=== PATIENT | female | born 1995 | race Two or more races ===

== ENCOUNTER 2020-03-03 15:26 | Inpatient (IN) | payer OTHER ==
[~2020-03-03] VITALS: Ht 165.1 cm; Wt 114.0 kg
[~2020-03-03 15:26] MED LIST: AVIANE1 EACH PO; BUSPIRONE HCL5 MG PO; CALCIUM500 MG PO; EYE HEALTH ADU1 EACH PO; FISH OIL 1,0001 EAC2 NG; MULTIVITAMINS1 EAC7 PO; PROBIOTIC1 EAC1 PO
[2020-03-04] MEDS ORDERED: PRENATAL VITAM1 EAC6 PO (03:42)
--- NOTE | 2020-03-04 12:39 | PR ---
[facility] [address] [facility] [place], [place] [address] Signed Progress Notes IP Datetime Report Generated by CPN: 03/04/2020 12:39 PROGRESS NOTES: [id number] Impression: Normal progression of labor Procedures: Artificial ROM; Sterile Vag Exam Plan: Continue present management Informed Consent Obtain: Vaginal Delivery; Induction of Labor; Risks, Benefits and Alternatives Discussed VITAL SIGNS: [id number] Vital Signs: Reviewed VS Notable Details: mild HTN EXAM: [id number] Dilatation: 1.5 Effacement: 70 Station: -2 Uterine Contractions: was q 2 to 4 min MEMBRANES: [id number] Membrane Status: Intact ROM Note: AROM with small amount of clear fluid Comments: Progressing and now ruptured. Will continue. Fetus A: [id number] FHR Baseline: 140 Variability: Moderate 6-25bpm Accelerations: 15X15 Decelerations: None FHR Category: Category I Presentation: Vertex Comments on Fetus A: No evidence of metabolic acidosis Fetus B: [id number] Signing Physician: Amaya Lewis MD Copies: ~ *Electronically Signed* 03/04/20 1239 AMAYA LEWIS MD PATIENT NAME: MOY BRODERICK PROGRESS NOTE DATE OF : [birth year] PHYSICIAN: AMAYA LEWIS MD RPT #: [id number] REPORT IS CONFIDENTIAL AND NOT TO BE RELEASED WITHOUT AUTHORIZATION
--- NOTE | 2020-03-04 17:40 | PR ---
[facility] [address] [facility] [place], [place] [address] Signed Progress Notes IP Datetime Report Generated by OTTO: 03/04/2020 17:40 PROGRESS NOTES: [id number] Impression: Slow Progression of Labor Procedures: Intrauterine Pressure Catheter; Scalp Electrode Plan: Continue present management Informed Consent Obtain: Vaginal Delivery; Induction of Labor; Risks, Benefits and Alternatives Discussed VITAL SIGNS: [id number] Vital Signs: Reviewed VS Notable Details: mild HTN EXAM: [id number] Dilatation: 3.0 Effacement: 90 Station: -2 Uterine Contractions: q 1 to 3 min MEMBRANES: [id number] Membrane Status: Intact ROM Note: AROM with small amount of clear fluid Comments: Progressing slowly. Some variables now so will continue to closely observe and change position as needed. Fetus A: [id number] FHR Baseline: 130 Variability: Moderate 6-25bpm Accelerations: 15X15 Decelerations: Variable FHR Category: Category II Presentation: Vertex Comments on Fetus A: good variability but will need close observation Fetus B: [id number] Signing Physician: Amaya Lewis MD Copies: ~ *Electronically Signed* 03/04/20 4700 AMAYA LEWIS MD PATIENT NAME: MOY BRODERICK PROGRESS NOTE DATE OF : [birth year] PHYSICIAN: AMAYA LEWIS MD RPT #: [id number] REPORT IS CONFIDENTIAL AND NOT TO BE RELEASED WITHOUT AUTHORIZATION
--- NOTE | 2020-03-04 19:26 | PR ---
[facility] [address] [place], [place] [address] Signed Progress Notes IP Datetime Report Generated by OTTO: 03/04/2020 19:26 PROGRESS NOTES: [id number] Impression: Arrest of dilatation/descent; Reassuring heart rate Procedures: Intrauterine Pressure Catheter; Scalp Electrode Plan: Continue present management Informed Consent Obtain: Vaginal Delivery; Induction of Labor; Risks, Benefits and Alternatives Discussed VITAL SIGNS: [id number] Vital Signs: Reviewed VS Notable Details: mild HTN EXAM: [id number] Dilatation: 3.0 Effacement: 90 Station: -2 Uterine Contractions: q 3 to 5 min, poor quality MEMBRANES: [id number] Membrane Status: Intact ROM Note: AROM with small amount of clear fluid Comments: Poor progress but contractions are poor quality at this time. Baby recovered well after using terb and is overall reassuring but will need continued close observation. Unfortunately, her contractions are poor quality. Will start pitocin to make contractions stronger and hopefully the baby will tolerate the increased contractions. Fetus A: [id number] FHR Baseline: 140 Variability: Moderate 6-25bpm Accelerations: 15X15 Decelerations: Variable FHR Category: Category II Presentation: Vertex Comments on Fetus A: No evidence of metabolic acidosis with good variability Fetus B: [id number] Signing Physician: Amaya Lewis MD Copies: *Electronically Signed* 03/04/20 1926 AMAYA LEWIS MD PATIENT NAME: MOY BRODERICK PROGRESS NOTE DATE OF : [birth year] PHYSICIAN: AMAYA LEWIS MD RPT #: [id number] REPORT IS CONFIDENTIAL AND NOT TO BE RELEASED WITHOUT AUTHORIZATION [address] [address] Signed ~ *Electronically Signed* 03/04/201925 AMAYA LEWIS MD PATIENT NAME: MOY BRODERICK PROGRESS NOTE DATE OF : [birth year] PHYSICIAN: AMAYA LEWIS MD RPT #: [id number] REPORT IS CONFIDENTIAL AND NOT TO BE RELEASED WITHOUT AUTHORIZATION
--- NOTE | 2020-03-06 07:05 | PR ---
[facility] [address] [facility] [place], [place] [address] Signed PP Progress Notes Datetime Report Generated by CPHina: 03/06/2020 07:05 SUBJECTIVE: [id number] Pain: Within normal limits Nausea/Vomiting: Denies Vital Signs: E7211399 Vital Signs: Reviewed; Within Normal Limits EXAM: [id number] Cardiovascular: Not Done Respiratory: Not Done Abdomen/Uterus: Abnormal Vulva/Perineum: Not Done Breasts: Not Done CVA Tenderness: Not Done Extremities: Normal Incision: Not Applicable Progress: Normal Exam Comments: Fundus firm, NT @ U-1. H/H 8.1/24.2, WBC 12.7, plat 152k IMPRESSION/PLAN/PROCEDURES: [id number] Impression: Normal progression Plan: Discharge Procedures: None Progress Notes: Doing well. She is ready for D/C. Signing Physician: Amaya Lewis MD Copies: ~ *Electronically Signed* 03/06/20704 AMAYA LEWIS MD PATIENT NAME: MOY BRODERICK PROGRESS NOTE DATE OF : [birth year] PHYSICIAN: AMAYA LEWIS MD RPT #: [id number] REPORT IS CONFIDENTIAL AND NOT TO BE RELEASED WITHOUT AUTHORIZATION
== END 2020-03-06 09:20 | disposition home or self-care (01) | DRG 768 ==
LOC: FBC 03-04 00:06
PROVIDERS: ADMIT Obstetrics & Gynecology
PROC: 10907ZC Drainage of Amniotic Fluid, Therapeutic from Products of Conception, Via Natural or Artificial Opening (ICD-10-PCS; 2020-03-04)
PROC: 10H07YZ Insertion of Other Device into Products of Conception, Via Natural or Artificial Opening (ICD-10-PCS; 2020-03-04)
PROC: 3E0P7VZ Introduction of Hormone into Female Reproductive, Via Natural or Artificial Opening (ICD-10-PCS; 2020-03-04)
PROC: 00HU33Z Insertion of Infusion Device into Spinal Canal, Percutaneous Approach (ICD-10-PCS; 2020-03-04)
PROC: 3E0R3BZ Introduction of Anesthetic Agent into Spinal Canal, Percutaneous Approach (ICD-10-PCS; 2020-03-04)
PROC: 10E0XZZ Delivery of Products of Conception, External Approach (ICD-10-PCS; principal; 2020-03-05)
PROC: 0UQG0ZZ Repair Vagina, Open Approach (ICD-10-PCS; 2020-03-05)
DX: O14.04 Mild to moderate pre-eclampsia, complicating childbirth (principal); Z37.0 Single live birth; Z3A.39 39 weeks gestation of pregnancy; O99.214 Obesity complicating childbirth; E66.9 Obesity, unspecified; O76 Abnormality in fetal heart rate and rhythm complicating labor and delivery; O71.4 Obstetric high vaginal laceration alone; O69.81X0 Labor and delivery complicated by cord around neck, without compression, not applicable or unspecified; O69.82X0 Labor and delivery complicated by other cord entanglement, without compression, not applicable or unspecified; O26.03 Excessive weight gain in pregnancy, third trimester
CPT/HCPCS: 01960; 36415; 82565; 82570; 82803; 84156; 84450; 84520; 84550; 85025; 85027; A9270; J2590; J2795; J3010; J3105; J7121

== ENCOUNTER 2022-08-24 00:07 | Inpatient (IN) | payer OTHER ==
[~2022-08-24] VITALS: Ht 165.1 cm; Wt 120.2 kg
[~2022-08-24 00:07] MED LIST changes: +PRENATAL VITAM1 EAC6 PO
--- NOTE | 2022-08-24 09:42 | PR ---
[facility] [address] [facility] [place], [place] [address] Signed Progress Notes IP Datetime Report Generated by CPN: 08/24/2022 09:42 PROGRESS NOTES: [id number] Impression: Normal Progression of Labor Procedures: Artificial ROM; Sterile Vag Exam Plan: Continue Present Management VITAL SIGNS: [id number] Vital Signs: Reviewed; Within Normal Limits EXAM: H5964965 Dilatation: 2.0 Effacement: 50 Station: -2 Contractions: q 2 min MEMBRANES: [id number] Comments: Doing well. Will continue. FETUS A: [id number] FHR Baseline: 130 Variability: Moderate 6-25bpm Accelerations: 15X15 Decelerations: None FHR Category: Category I Presentation: Vertex Comments on Fetus A: no evidence of metabolic acidosis FETUS B: [id number] Signing Physician: Amaya Lewis MD Copies: ~ *Electronically Signed* 08/24/22941 AMAYA LEWIS MD PATIENT NAME: MOY BRODERICK PROGRESS NOTE DATE OF : [birth year] PHYSICIAN: AMAYA LEWIS MD RPT #: [id number] REPORT IS CONFIDENTIAL AND NOT TO BE RELEASED WITHOUT AUTHORIZATION
--- NOTE | 2022-08-24 13:36 | PR ---
[facility] [address] [facility] [place] [address] Signed Progress Notes IP Datetime Report Generated by CPN: 08/24/2022 13:36 PROGRESS NOTES: [id number] Impression: Reassuring Heart Rate Procedures: Sterile Vag Exam Plan: Augmentation VITAL SIGNS: [id number] Vital Signs: Reviewed; Within Normal Limits EXAM: A5021117 Dilatation: 4.0 Effacement: 70 Station: -2 Contractions: q 2 min MEMBRANES: [id number] Comments: No progress over last 2 hrs. Labor pattern appears dysfunctional. Will begin low dose pitocin. Discussed with patient. FETUS A: [id number] FHR Baseline: 130 Variability: Moderate 6-25bpm Accelerations: 15X15 Decelerations: None FHR Category: Category I Presentation: Vertex Comments on Fetus A: no evidence of metabolic acidosis FETUS B: [id number] Signing Physician: Amaya Lewis MD Copies: ~ *Electronically Signed* 08/24/22 1336 AMAYA LEWIS MD PATIENT NAME: MOY BRODERICK PROGRESS NOTE DATE OF : [birth year] PHYSICIAN: AMAYA LEWIS MD RPT #: [id number] REPORT IS CONFIDENTIAL AND NOT TO BE RELEASED WITHOUT AUTHORIZATION
--- NOTE | 2022-08-24 15:40 | PR ---
[facility] [address] [facility] [place], [place] [address] Signed Progress Notes IP Datetime Report Generated by CPN: 08/24/2022 15:39 PROGRESS NOTES: [id number] Impression: Reassuring Heart Rate Procedures: Intrauterine Pressure Catheter; Sterile Vag Exam Plan: Continue Present Management VITAL SIGNS: [id number] Vital Signs: Reviewed; Within Normal Limits EXAM: [id number] Dilatation: 4.0 Effacement: 70 Station: -2 Contractions: q 2 min MEMBRANES: [id number] Comments: No real progress. Suspect contractions still not adequate. Will place IUPC and increase pit as needed. FETUS A: Z8903220 FHR Baseline: 130 Variability: Moderate 6-25bpm Accelerations: 15X15 Decelerations: None FHR Category: Category I Presentation: Vertex Comments on Fetus A: no evidence of metabolic acidosis FETUS B: [id number] Signing Physician: Amaya Lewis MD Copies: ~ *Electronically Signed* 08/24/22 1539 AMAYA LEWIS MD PATIENT NAME: MOY BRODERICK PROGRESS NOTE DATE OF : [birth year] PHYSICIAN: AMAYA LEWIS MD RPT #: [id number] REPORT IS CONFIDENTIAL AND NOT TO BE RELEASED WITHOUT AUTHORIZATION
--- NOTE | 2022-08-24 18:39 | PR ---
[facility] [address] [facility] [place], [place] [address] Signed Progress Notes IP Datetime Report Generated by CPN: 08/24/2022 18:39 PROGRESS NOTES: [id number] Impression: Reassuring Heart Rate Procedures: Sterile Vag Exam Plan: Continue Present Management Other Plans: increase pitocin, change position VITAL SIGNS: H5095525 Vital Signs: Reviewed; Within Normal Limits EXAM: [id number] Dilatation: 5.0 Effacement: 80 Station: -2 Contractions: q 2 min MEMBRANES: [id number] Comments: Minimal change in cervix. Will increase pit and try further position changes. FETUS A: [id number] FHR Baseline: 130 Variability: Moderate 6-25bpm Accelerations: 15X15 Decelerations: None FHR Category: Category I Presentation: Vertex Comments on Fetus A: no evidence of metabolic acidosis FETUS B: [id number] Signing Physician: Amaya Lewis MD Copies: ~ *Electronically Signed* 08/24/22 1839 AMAYA LEWIS MD PATIENT NAME: MOY BRODERICK PROGRESS NOTE DATE OF : [birth year] PHYSICIAN: AMAYA LEWIS MD RPT #: [id number] REPORT IS CONFIDENTIAL AND NOT TO BE RELEASED WITHOUT AUTHORIZATION
--- NOTE | 2022-08-24 20:48 | PR ---
[facility] [address] [facility] [place], [place] [address] Signed Progress Notes IP Datetime Report Generated by CPN: 08/24/2022 20:48 PROGRESS NOTES: [id number] Impression: Reassuring Heart Rate Procedures: Sterile Vag Exam Plan: Continue Present Management Other Plans: increase pitocin, change position VITAL SIGNS: O0049014 Vital Signs: Reviewed; Within Normal Limits EXAM: G1818887 Dilatation: 5.0 Effacement: 80 Station: -2 Contractions: q 2 min MEMBRANES: [id number] Comments: Comfortable after epidural. Cervix feels more central. Will continue. FETUS A: [id number] FHR Baseline: 130 Variability: Moderate 6-25bpm Accelerations: 15X15 Decelerations: None FHR Category: Category I Presentation: Vertex Comments on Fetus A: no evidence of metabolic acidosis FETUS B: [id number] Signing Physician: Amaya Lewis MD Copies: ~ *Electronically Signed* 08/24/222047 AMAYA LEWIS MD PATIENT NAME: MOY BRODERICK PROGRESS NOTE DATE OF : [birth year] PHYSICIAN: AMAYA LEWIS MD RPT #: [id number] REPORT IS CONFIDENTIAL AND NOT TO BE RELEASED WITHOUT AUTHORIZATION
--- NOTE | 2022-08-25 08:37 | PR ---
[facility] [address] [facility] [place], [place] [address] Signed PP Progress Notes Datetime Report Generated by CPN: 08/25/2022 08:37 SUBJECTIVE: [id number] Pain: Within Normal Limits Vital Signs: [id number] Vital Signs: Reviewed; Within Normal Limits Cardiovascular: Not Done Respiratory: Not Done Abdomen/Uterus: Abnormal Lochia: Normal Vulva/Perineum: Not Done Breasts: Not Done CVA Tenderness: Not Done Extremities: Normal Incision: Not Applicable Progress: Normal Exam Comments: Fundus firm, NT @ U-1. H/H 10.4/31.7, WBC 15.8, plat 265k IMPRESSION/PLAN/PROCEDURES: [id number] Impression: Normal Progression Plan: Continue Present Management Procedures: None Progress Notes: Doing well. Will continue present care with probable D/C in am. Signing Physician: Amaya Lweis MD Copies: ~ *Electronically Signed* 08/25/22 0837 AMAYA LEWIS MD PATIENT NAME: MOY BRODERICK PROGRESS NOTE DATE OF : [birth year] PHYSICIAN: AMAYA LEWIS MD RPT #: [id number] REPORT IS CONFIDENTIAL AND NOT TO BE RELEASED WITHOUT AUTHORIZATION
--- NOTE | 2022-08-26 09:52 | PR ---
[facility] [address] [facility] [place], [place] [address] Signed PP Progress Notes Datetime Report Generated by CPN: 08/26/2022 09:52 SUBJECTIVE: [id number] Pain: Within Normal Limits Vital Signs: I5187707 Vital Signs: Reviewed; Within Normal Limits Cardiovascular: Not Done Respiratory: Not Done Abdomen/Uterus: Abnormal Lochia: Normal Vulva/Perineum: Not Done Breasts: Not Done CVA Tenderness: Not Done Extremities: Normal Incision: Not Applicable Progress: Abnormal Exam Comments: Fundus firm, NT @ U-1. IMPRESSION/PLAN/PROCEDURES: [id number] Impression: Normal Progression Plan: Discharge Procedures: None Progress Notes: Doing well. She is ready for D/C. Signing Physician: Amaya Lewis MD Copies: ~ *Electronically Signed* 08/26/22 0952 AMAYA LEWIS MD PATIENT NAME: MOY BRODERICK PROGRESS NOTE DATE OF : [birth year] PHYSICIAN: AMAYA LEWIS MD RPT #: [id number] REPORT IS CONFIDENTIAL AND NOT TO BE RELEASED WITHOUT AUTHORIZATION
== END 2022-08-26 11:13 | disposition home or self-care (01) | DRG 807 ==
LOC: FBC 00:07
PROVIDERS: ADMIT Obstetrics & Gynecology; ATTEND Obstetrics & Gynecology
PROC: 10E0XZZ Delivery of Products of Conception, External Approach (ICD-10-PCS; principal; 2022-08-24)
PROC: 3E0P7VZ Introduction of Hormone into Female Reproductive, Via Natural or Artificial Opening (ICD-10-PCS; 2022-08-24)
PROC: 10907ZC Drainage of Amniotic Fluid, Therapeutic from Products of Conception, Via Natural or Artificial Opening (ICD-10-PCS; 2022-08-24)
PROC: 00HU33Z Insertion of Infusion Device into Spinal Canal, Percutaneous Approach (ICD-10-PCS; 2022-08-24)
PROC: 3E0R3BZ Introduction of Anesthetic Agent into Spinal Canal, Percutaneous Approach (ICD-10-PCS; 2022-08-24)
PROC: 10H07YZ Insertion of Other Device into Products of Conception, Via Natural or Artificial Opening (ICD-10-PCS; 2022-08-24)
DX: O99.214 Obesity complicating childbirth (principal); Z37.0 Single live birth; Z3A.39 39 weeks gestation of pregnancy; Z67.40 Type O blood, Rh positive; Z20.822 Contact with and (suspected) exposure to COVID-19
CPT/HCPCS: 36415; 85027; 86850; 86900; 86901; 87502; A9270; C9803; J2590; J7121; U0003